=== PATIENT | male | born 1950 | race Caucasian/White ===

== ENCOUNTER → 2020-06-01 | Day surgery (SDC) | payer MEDICARE, OTHER ==
[~2020-06-01] MED LIST: AMLODIPINE BESYL5 MG PO; ASPIRIN EC81 MG PO; BERGAMOT PO; CO Q10100 MG PO; COZAAR100 MG PO; DESYREL50 MG PO; DOXYCYCLINE MO100 MG PO; ELIQUIS5 MG PO; KETOROLAC TROME10 MG PO; LOPRESSOR25 MG PO; LOSARTAN-HCTZ1 EAC1 PO; MAGNESIUM PO; MIRALAX17 GM PO; NORCO 5-325 TA1 EACH PO; SINEQUAN10 MG PO; VENTOLIN HFA18 GM INH
[2020-06-01 09:17] LABS: BASOPHIL 0.6 % (0-2); HCT 40.1 % (42.0-52.0); HGB 13.7 g/dl (13.2-18.0); LYMPHOCYTE 12.1 % (15-48); MCHC 34.2 g/dL (32.0-36.0); MCV 84.8 fL (78.0-100.0); MONOCYTE 10.8 % (0-12); MPV 9.5 fL (6.0-9.5); NRBC 0; PLT 226 K/uL (150-400); RBC 4.73 M/uL (4.70-6.00); RDW 13.4 % (11.5-14.0); WBC 12.5 K/uL (4.0-10.5)
[2020-06-01 09:29] LABS: BILIRUBIN NEGATIVE (NEGATIVE); BLOOD NEGATIVE Ery/uL (NEGATIVE); CLARITY CLEAR (CLEAR); COLOR YELLOW (YELLOW); GLUCOSE (U) NORMAL (NORMAL); LEUKOCYTES NEGATIVE Leu/uL (NEGATIVE); NITRITE NEGATIVE (NEGATIVE); PROTEIN NEGATIVE (NEGATIVE); SPECIFIC GRAVITY 1.025 (1.001-1.030); UROBILINOGEN 0.2 mg/dL (0.2-1.0)
[2020-06-01 09:41] LABS: ALBUMIN 3.6 g/dL (3.4-5.0); BILIRUBIN - TOTAL 1.3 mg/dL (0.2-1.0); BUN/CREAT RATIO (CALC) 18.3 RATIO; CREATININE 1.09 mg/dL (0.67-1.17); GLOBULIN (CALCULATION) 3.6 g/dL; POTASSIUM 3.8 mmol/L (3.5-5.1); TOTAL PROTEIN 7.2 g/dL (6.4-8.2)
[2020-06-01 09:49] LABS: CORONAVIRUS 2019 SARS-COV-2 NEGATIVE (NEGATIVE); INFLUENZA A NAA NEGATIVE (NEGATIVE)
== END | disposition home or self-care (01) ==
LOC: FER 08:12 → FAS 11:43
PROVIDERS: Emergency Medicine
DX: K61.1 Rectal abscess (principal); I10 Essential (primary) hypertension; Z79.82 Long term (current) use of aspirin; Z79.899 Other long term (current) drug therapy; Z88.4 Allergy status to anesthetic agent; Z20.822 Contact with and (suspected) exposure to COVID-19
CPT/HCPCS: 36415; 72193; 80053; 81003; 85025; 87070; 87075; 87077; 87186; 87205; 93005; J0295; J1100; J1170; J1885; J2405; J2704; J3010; J7120; Q9967; U0002

== ENCOUNTER 2020-06-03 01:49 | Emergency (ER) | payer MEDICARE, OTHER ==
[~2020-06-03 01:49] MED LIST changes: -ASPIRIN EC81 MG PO; -COZAAR100 MG PO; -DOXYCYCLINE MO100 MG PO; -ELIQUIS5 MG PO; -LOPRESSOR25 MG PO; -MIRALAX17 GM PO
[2020-06-03] MEDS ORDERED: MIRALAX17 GM PO (04:05)
== END 2020-06-03 04:16 | disposition home or self-care (01) ==
LOC: FER 01:49
DX: K59.00 Constipation, unspecified (principal); I10 Essential (primary) hypertension; Z98.890 Other specified postprocedural states; Z88.4 Allergy status to anesthetic agent; Z79.82 Long term (current) use of aspirin; Z79.899 Other long term (current) drug therapy
CPT/HCPCS: 99283

== ENCOUNTER 2020-10-20 01:11 | Inpatient (IN) | payer MEDICARE, OTHER ==
[~2020-10-20] VITALS: Ht 182.9 cm; Wt 123.9 kg
[~2020-10-20 01:11] MED LIST changes: +MIRALAX17 GM PO
[2020-10-20 02:29] LABS: BASOPHIL 0.4 % (0-2); EOSINOPHIL 0.5 % (0-7); HCT 41.1 % (42.0-52.0); HGB 14.2 g/dl (13.2-18.0); LYMPHOCYTE 4.8 % (15-48); MCH 29.5 pg (25.0-31.0); MCHC 34.5 g/dL (32.0-36.0); MCV 85.3 fL (78.0-100.0); MONOCYTE 6.2 % (0-12); MPV 9.7 fL (6.0-9.5); NEUTROPHIL 87.7 % (41-80); NRBC 0; PLT 217 K/uL (150-400); RBC 4.82 M/uL (4.70-6.00); RDW 14.1 % (11.5-14.0); WBC 11.9 K/uL (4.0-10.5)
[2020-10-20 02:52] LABS: ALBUMIN 4.1 g/dL (3.4-5.0); BILIRUBIN - TOTAL 0.9 mg/dL (0.2-1.0); BUN/CREAT RATIO (CALC) 16.5 RATIO; CREATININE 1.27 mg/dL (0.67-1.17); GLOBULIN (CALCULATION) 3.4 g/dL; POTASSIUM 4.5 mmol/L (3.5-5.1); TOTAL PROTEIN 7.5 g/dL (6.4-8.2)
[2020-10-20 02:59] LABS: LACTIC ACID 2.7 mmol/L (0.4-1.9)
[2020-10-20 03:20] LABS: CORONAVIRUS 2019 SARS-COV-2 NEGATIVE (NEGATIVE); INFLUENZA A NAA NEGATIVE (NEGATIVE)
[2020-10-20 05:04] LABS: BILIRUBIN NEGATIVE (NEGATIVE); BLOOD NEGATIVE Ery/uL (NEGATIVE); CLARITY CLEAR (CLEAR); COLOR YELLOW (YELLOW); GLUCOSE (U) NORMAL (NORMAL); LEUKOCYTES NEGATIVE Leu/uL (NEGATIVE); NITRITE NEGATIVE (NEGATIVE); PROTEIN NEGATIVE (NEGATIVE); SPECIFIC GRAVITY >=1.030 (1.001-1.030); UROBILINOGEN 0.2 mg/dL (0.2-1.0); pH 5.5 (5.0-9.0)
[2020-10-20] MEDS ORDERED: ASPIRIN EC81 MG PO (06:18)
[2020-10-21 06:01] LABS: HCT 33.5 % (42.0-52.0); HGB 11.9 g/dl (13.2-18.0); MCH 29.7 pg (25.0-31.0); MCHC 35.5 g/dL (32.0-36.0); MCV 83.5 fL (78.0-100.0); MPV 9.2 fL (6.0-9.5); RBC 4.01 M/uL (4.70-6.00); WBC 5.7 K/uL (4.0-10.5)
[2020-10-21 06:39] LABS: CREATININE 1.39 mg/dL (0.67-1.17); POTASSIUM 3.8 mmol/L (3.5-5.1)
--- NOTE | 2020-10-22 20:01 | NUR ---
AIDE CAME INTO [facility] TO REPORT PT STATEMENT OF CHEST PAIN. WENT IN TO ASSESS. PAIN RATED AT 2/10 AND VERY EMOTIONAL. CALLED KIM LINDA APRN AND PUT IN ORDERS FOR TROPONIN, STAT EKG, AND NITRO 0.4 SL. EKG SHOWED AFIB AT A CONTROLLED RATE OF 104. CONNECTED PT TO TELE MONITOR. RATE IS NOW 95-105 ON MONITOR. UPDATED KIM LINDA APRN ON FINDINGS.
[2020-10-23 05:49] LABS: HCT 33.2 % (42.0-52.0); HGB 11.8 g/dl (13.2-18.0); MCH 29.5 pg (25.0-31.0); MCHC 35.5 g/dL (32.0-36.0); MPV 9.9 fL (6.0-9.5); RDW 13.7 % (11.5-14.0); WBC 7.4 K/uL (4.0-10.5)
[2020-10-23 06:45] LABS: CREATININE 0.97 mg/dL (0.67-1.17); POTASSIUM 3.8 mmol/L (3.5-5.1)
[2020-10-23 09:56] LABS: CREATININE 1.02 mg/dL (0.67-1.17); POTASSIUM 3.9 mmol/L (3.5-5.1)
[2020-10-23] MEDS ORDERED: ELIQUIS5 MG PO (12:30)
[2020-10-23] MEDS ORDERED: LOPRESSOR25 MG PO (12:30)
[2020-10-23] MEDS ORDERED: COZAAR100 MG PO (12:30)
[2020-10-23] MEDS ORDERED: DOXYCYCLINE MO100 MG PO ×2 (12:34→13:01)
== END 2020-10-23 14:00 | disposition home or self-care (01) | DRG 872 ==
LOC: FER 01:11 → FMS 04:35
PROVIDERS: Emergency Medicine; Hospitalist; Nurse Practitioner Family; ADMIT Internal Medicine
DX: A41.9 Sepsis, unspecified organism (principal); N17.9 Acute kidney failure, unspecified; B34.9 Viral infection, unspecified; R50.9 Fever, unspecified; I48.91 Unspecified atrial fibrillation; Z79.899 Other long term (current) drug therapy; Z20.822 Contact with and (suspected) exposure to COVID-19; Z79.82 Long term (current) use of aspirin; R73.9 Hyperglycemia, unspecified; J44.9 Chronic obstructive pulmonary disease, unspecified; G62.9 Polyneuropathy, unspecified; R11.0 Nausea; G89.29 Other chronic pain; M54.9 Dorsalgia, unspecified; Z83.3 Family history of diabetes mellitus; Z80.0 Family history of malignant neoplasm of digestive organs; Z87.891 Personal history of nicotine dependence
CPT/HCPCS: 36415; 71045; 71250; 80048; 80053; 81003; 83605; 83690; 83880; 84484; 85025; 85379; 87040; 93005; G0378; J1650; J2405; J2543; J7030; U0002

== ENCOUNTER 2021-10-13 23:41 | Emergency (ER) | payer MEDICARE, OTHER ==
[~2021-10-13 23:41] MED LIST changes: +ASPIRIN EC81 MG PO; +COZAAR100 MG PO; +DOXYCYCLINE MO100 MG PO; +ELIQUIS5 MG PO; +LOPRESSOR25 MG PO
[2021-10-14 00:41] LABS: BASOPHIL 0.4 % (0-2); EOSINOPHIL 0.1 % (0-7); HCT 40.6 % (42.0-52.0); HGB 14.4 g/dl (13.2-18.0); LYMPHOCYTE 9.1 % (15-48); MCH 29.6 pg (25.0-31.0); MCHC 35.5 g/dL (32.0-36.0); MCV 83.5 fL (78.0-100.0); MONOCYTE 5.5 % (0-12); MPV 9.4 fL (6.0-9.5); NEUTROPHIL 84.3 % (41-80); NRBC 0; PLT 222 K/uL (150-400); RBC 4.86 M/uL (4.70-6.00); RDW 13.9 % (11.5-14.0); WBC 11.2 K/uL (4.0-10.5)
[2021-10-14 01:15] LABS: BUN/CREAT RATIO (CALC) 29.8 RATIO; CREATININE 1.14 mg/dL (0.67-1.17); POTASSIUM 4.5 mmol/L (3.5-5.1)
[2021-10-14] MEDS ORDERED: NORCO 5-325 TA1 EACH PO (05:19)
== END 2021-10-14 05:30 | disposition home or self-care (01) ==
LOC: FER 23:41
PROVIDERS: Emergency Medicine
DX: R07.89 Other chest pain (principal); J45.909 Unspecified asthma, uncomplicated; Z88.4 Allergy status to anesthetic agent; Z79.52 Long term (current) use of systemic steroids
CPT/HCPCS: 36415; 71045; 71275; 80048; 84484; 85025; 93005; 94010; J1885; Q9967